=== PATIENT | male | born 1975 | race African-American/Black ===

== ENCOUNTER 2016-11-11 23:00 | Inpatient (IN) | payer OTHER ==
--- NOTE | ~2016-11-11 | HP ---
Unit #: [id number] #: [id number] Patient: SHARIF IZAGUIRRE [id number] [place] [address] [id number] MR#: [id number] NAME: SHARIF IZAGUIRRE. ROOM: P174 Age: 41 Sex: M Admission Date: 11/12/2016 : 1975 Attending Physician: Kaushik Plunkett M.D. Admitting Physician: Kaushik Plunkett M.D. Primary Care Physician: Primary Care Physician No HISTORY AND PHYSICAL HISTORY OF PRESENT ILLNESS Sharif is a 41-year-old admitted to [facility] because of his drug use. He shoots heroin. PAST MEDICAL HISTORY 1. Long history of opioid abuse to include IV heroin. 2. High blood pressure. PAST SURGICAL HISTORY Inguinal hernia repair. ALLERGIES No known drug allergies. SOCIAL HISTORY Smokes 1 pack per day. Denies alcohol. Admits to a long history of opioid abuse to include IV heroin. FAMILY HISTORY Medically noncontributory. REVIEW OF SYSTEMS CONSTITUTIONAL: No fever or chills. HEENT: Denies any sore throat, ear pain or runny nose. CARDIOVASCULAR: Denies chest pain, irregular heart rhythm or palpitations. CHEST: Denies shortness of breath or cough. No hemoptysis. GASTROINTESTINAL: Denies nausea, vomiting, diarrhea or chronic constipation. ENDOCRINE: Denies history of increased thirst or urination. No recent significant weight loss or gain. GENITOURINARY: Denies dysuria, frequency, or hematuria. SKIN: Denies any rashes. HEMATOLOGIC: Denies history of increased bleeding or bruising. MUSCULOSKELETAL: Denies any hot, swollen joints. No generalized muscle pain. NEUROLOGIC: Denies problems with vision or speech. No frequent, severe headaches. No numbness, tingling or weakness in any extremities. Denies loss of bladder or bowel control. CURRENT MEDICATIONS Detox protocol. PHYSICAL EXAMINATION Unit #: [id number] #: [id number] Patient: SHARIF IZAGUIRRE GENERAL: Alert, well-nourished, in no apparent distress. VITAL SIGNS: Blood pressure 144/94, heart rate 70, respirations 16, temperature 98.6. WEIGHT: 188. HEIGHT: 5 feet 10 inches. SKIN: Warm and dry without rash or lesion. HEENT: Normocephalic. TMs not viewed. Oral and nasal passages clear. Conjunctivae clear. PERRLA. EOMs intact. NECK: Supple without lymphadenopathy or thyromegaly. HEART: Regular rate and rhythm without murmur. LUNGS: Clear. ABDOMEN: Soft, nontender. : Not done. EXTREMITIES: No evidence of cyanosis, clubbing or edema. Moves all without focal deficit. NEUROLOGICAL: Grossly within normal limits. Cranial Nerves: II: Visual lu are intact. III, IV AND : Extraocular movements are intact. Pupils are equal, round and reactive to light. V: Facial sensation is grossly normal. VII: Facial movements and expression are normal. VIII: Auditory acuity grossly intact. IX, X: Uvula is midline. Phonation is normal. XI: Patient shrugs shoulders and turns head normally. XII: Tongue protrudes in the midline. Sensory and Motor Function: Sensory and motor sensation is grossly normal. Motor: moves all extremities well. Coordination: Gait is normal. Deep Tendon Reflexes: Intact. IMPRESSION Psychiatric admission. RECOMMENDATIONS PSYCHIATRIC: Per psychiatrist. MEDICAL: See no contraindications to participate in facility's activities. MEDICAL PROGNOSIS Good. MEDICAL CONDITION Stable. Dictated by... Yanely Tsai P.A.-C. for Derrek Yañez/etienne TD: 11/12/2016 21:23 JOB #: [id number] Unit #: [id number] #: [id number] Patient: SHARIF IZAGUIRRE A HISTORY AND PHYSICAL Page 1 of 1 X Yanely Tsai X HISTORY AND PHYSICAL
--- NOTE | ~2016-11-11 | DS ---
Unit #: [id number] #: [id number] Patient: NIYA IZAGUIRRE [id number] [facility] [address] [place] [address] [id number] MR#: [id number] NAME: NIYA IZAGUIRRE. ROOM: P174 Age: 41 Sex: M Admission Date: 11/12/2016 : 1975 Discharge Date: 11/15/2016 Attending Physician: Kaushik Plunkett M.D. Primary Care Physician: No Primary Care Physician DISCHARGE SUMMARY REASON FOR ADMISSION The patient is a 41-year-old -Citizen Of [place] male admitted with an 8 year history of intravenous abuse of heroin and methamphetamines. DIAGNOSTIC STUDIES HOSPITAL COURSE The patient is admitted to the [address] [place] [address] unit and placed on routine detoxication protocol for opioids. His stay in the hospital was brief and uneventful one. With this detox by 11/15/2016 the patient was in great spirits and requested discharge. It was so ordered. FINAL DIAGNOSIS Opioid use disorder. DISPOSITION ON DISCHARGE Patient is discharged on no psychotropic or other medications. FOLLOWUP Followup will take place through the auspices of the intensive outpatient program provided at this facility and community mental health resources. PROGNOSIS Patient's prognosis is considered fair. Dictated by... Kaushik Plunkett M.D. CB/silverio TD: 11/19/2016 06:48 JOB #: [id number] Unit #: [id number] #: [id number] Patient: NIYA IZAGUIRRE DISCHARGE SUMMARY Page 1 of 1 X Kaushik Plunkett MD X DISCHARGE SUMMARY
--- NOTE | ~2016-11-11 | PN ---
Unit #: [id number] #: [id number] Patient: NIYA IZAGUIRRE [id number] [facility] [address] [place] [address] [id number] MR#: [id number] NAME: NIYA IZAGUIRRE ROOM: P174 Age: 41 Sex: M Admission Date: 11/12/2016 : 1975 Attending Physician: Kaushik Plunkett M.D. Admitting Physician: Kaushik Plunkett M.D. Primary Care Physician: Primary Care Physician Izabela DARDEN PROGRESS NOTES DATE 11/14/2016 DISCUSSION The patient seems to be much more comfortable today as his symptoms of opioid withdrawal subside we may look at discharge as early as tomorrow with arrangements for followup to be made at that time. Dictated by... Kaushik Plunkett M.D. CB/aayush TD: 11/15/2016 01:21 JOB #: [id number] [facility] PROGRESS NOTES Page 1 of 1 X Kaushik Plunkett MD X PROGRESS NOTE
--- NOTE | ~2016-11-11 | PN ---
Unit #: [id number] #: [id number] Patient: NIYA IZAGUIRRE [id number] [facility] [address] [place] [address] [id number] MR#: [id number] NAME: NIYA IZAGUIRRE. ROOM: P174 Age: 41 Sex: M Admission Date: 11/12/2016 : 1975 Attending Physician: Kaushik Plunkett M.D. Admitting Physician: Kaushik Plunkett M.D. Primary Care Physician: Primary Care Physician Izabela DARDEN PROGRESS NOTES DATE 11/13/2016 DISCUSSION The patient continues to complain of significant symptoms of opioid withdrawal. He is also complaining of poor sleep, and we will add p.r.n. trazodone. Dictated by... Kaushik Plunkett M.D. CB/bzandra TD: 11/13/2016 12:55 JOB #: [id number] [facility] PROGRESS NOTES Page 1 of 1 X Kaushik Plunkett MD PROGRESS NOTE
--- NOTE | ~2016-11-11 | PA ---
Unit #: [id number] #: [id number] Patient: NIYA IZAGUIRRE [id number] [facility] [address] [place] [address] [id number] I MR#: [id number] NAME: NIYA IZAGUIRRE. ROOM: P174 Age: 41 Sex: M Admission Date: 11/12/2016 : 1975 Date of Assessment: 11/12/2016 Attending Physician: Kaushik Plunkett M.D. Admitting Physician: Kaushik Plunkett M.D. Primary Care Physician: Primary Care Physician No PSYCHIATRIC ASSESSMENT IDENTIFYING INFORMATION The patient is a 41-year-old male admitted to the [address] [place] [address] for abuse of heroin and methamphetamine. CHIEF COMPLAINT "I relapsed." INFORMANT(S) Patient, reliability is good. HISTORY OF PRESENT ILLNESS The patient is a 41-year-old male with an 8-year history of intravenous abuse of heroin and methamphetamine. The patient reports that because of this he has lost his job and is now homeless. He is denying suicidal or homicidal ideation, but he is expressing interest in maintaining sobriety. The patient reports previous treatment at this facility and at [facility]. He denies abuse of other psychoactive substances. He denies current suicidal or homicidal ideation or changes in mood, sleep, or appetite. PAST PSYCHIATRIC HISTORY As above. PAST MEDICAL HISTORY Noncontributory. MEDICATIONS None. ALLERGIES None reported. FAMILY HISTORY Noncontributory. SOCIAL HISTORY The patient is currently homeless. He reports substance use as noted previously. MENTAL STATUS EXAMINATION Examination at this time reveals the patient to be a well-developed well-nourished male appearing stated age. He appears to be in significant physical distress related to opioid withdrawal. He is Unit #: [id number] #: [id number] Patient: NIYA IZAGUIRRE awake, alert, and oriented in all spheres. His mood is dysphoric, his affect constricted. Speech is generally well-coherent. There are no gross deficits in memory or cognition noted. Intelligence is judged to be in the average range based on fund of knowledge. The patient is cooperative throughout the interview. He is currently denying suicidal or homicidal ideation or psychotic features. His judgment and insight appear to be intact. ASSETS AND LIABILITIES The patient's assets: Motivation for change. Liabilities: Lack of resources. DIAGNOSTIC IMPRESSION 1. Opioid use disorder. 2. Methamphetamine use disorder. TREATMENT PLAN The patient remains hospitalized for safety and stabilization. A routine detoxification protocol to cover opioids has been initiated. I will ask the patient's social insurance administrator to see him regarding post-discharge treatment options. ESTIMATED LENGTH OF STAY 4 days. Dictated by... Kaushik Plunkett M.D. CAMERON/hal TD: 11/12/2016 15:07 JOB #: [id number] PSYCHIATRIC ASSESSMENT Page 1 of 1 X Kaushik Plunkett MD X PSYCHIATRIC ASSESSMENT
[2016-11-12 09:41] LABS: BASOPHIL% 0.6 % (0-2.5); EOSINOPHIL# 0.1 X10e3 (0-0.7); HEMATOCRIT 41.5 % (38.0-50.0); HEMOGLOBIN 13.9 gm/dL (13.0-16.0); LYMPHOCYTE# 1.4 X10e3 (1.0-3.5); LYMPHOCYTE% 16.8 % (17.0-45.0); MEAN CELL VOLUME 89.1 FL (83-96); MEAN CORPUSCULAR HEMOGLOBIN 29.8 PG (28-34); MEAN CORPUSCULAR HGB CONC 33.5 g/dL (30-36); MEAN PLATELET VOLUME 7.2 FL (6.5-11.5); MONOCYTE# 0.6 X10e3 (0-1.0); MONOCYTE% 7.6 % (3.0-12.0); NEUTROPHIL# 6.2 X10e3 (1.5-7.1); PLATELET COUNT 227 X10e3 (140-420); RED BLOOD COUNT 4.66 X10e (3.90-5.60); RED CELL DISTRIBUTION WIDTH 12.7 % (11.0-15.5); WHITE BLOOD COUNT 8.3 X10e3 (4.0-10.5)
[2016-11-12 09:55] LABS: DIFF IND NO
[2016-11-12 10:18] LABS: ALBUMIN SERUM 3.6 g/dL (3.5-5.0); BILIRUBIN,TOTAL 0.8 mg/dL (0.2-2.0); BUN/CREATININE RATIO 17.77; CALCIUM SERUM 8.8 mg/dL (8.4-10.2); CREATININE SERUM 0.9 mg/dL (0.6-1.4); GLOM FILT RATE Estimated 120.8 mL/min (>60); POTASSIUM 3.9 mmol/L (3.5-5.1); PROTEIN TOTAL SERUM 6.8 g/dL (6.0-8.3)
[2016-11-13 14:09] LABS: URINE APPEARANCE CLEAR; URINE BILIRUBIN NEG (NEG); URINE BLOOD NEG (NEG); URINE COLOR YELLOW; URINE GLUCOSE NEG (NEG); URINE KETONE NEG (NEG); URINE LEUKOCYTE ESTERASE NEG (NEG); URINE NITRATE NEG (NEG); URINE PH 7.5 (5-8); URINE PROTEIN NEG (NEG); URINE SPECIFIC GRAVITY 1.012 (1.003-1.035)
[2016-11-13 14:26] LABS: AMPHETAMINE NEG (NEG); BARBITURATES NEG (NEG); BENZODIAZEPINES NEG (NEG); COCAINE NEG (NEG); MARIJUANA NEG (NEG); OPIATES POS (NEG); TRICYCLIC ANTIDEPRESSANTS NEG (NEG); U METHADONE NEG (NEG)
== END 2016-11-15 16:30 | DRG 897 ==
LOC: P1E 11-12 03:21
PROVIDERS: Specialist
PROC: HZ2ZZZZ Detoxification Services for Substance Abuse Treatment (ICD-10-PCS; principal; 2016-11-12)
DX: F11.23 Opioid dependence with withdrawal (principal); F15.20 Other stimulant dependence, uncomplicated; I10 Essential (primary) hypertension; Z59.0 Homelessness; F17.210 Nicotine dependence, cigarettes, uncomplicated
CPT/HCPCS: 80053; 80307; 81003; 85025; 86592; J2550

== ENCOUNTER 2016-12-12 | Emergency (ER) | payer OTHER | END 2016-12-12 07:34 | disposition home or self-care (01) | LOC: SED | DX: F11.10 Opioid abuse, uncomplicated (principal); F15.10 Other stimulant abuse, uncomplicated; F17.200 Nicotine dependence, unspecified, uncomplicated | CPT/HCPCS: 96372; 99284; J1630; J2060 ==